=== PATIENT | female | born 1950 | race Hispanic/Latino ===

== ENCOUNTER 2019-08-28 19:33 | Inpatient (IN) | payer MEDICARE ==
[~2019-08-28] VITALS: Ht 152.4 cm; Wt 79.5 kg
[2019-08-28 20:05] LABS: BASOPHILS % (AUTO) 0.7 % (0.0-5.0); EOSINOPHILS % (AUTO) 2.6 % (0.0-8.0); HEMATOCRIT 32.7 % (36-48); LYMPHOCYTES % (AUTO) 16.6 % (21.0-51.0); MEAN CORPUSCULAR HEMOGLOBIN 31.6 pg (27.0-33.0); MEAN CORPUSCULAR HGB CONC 34.4 g/dL (32.0-36.0); MEAN CORPUSCULAR VOLUME 91.7 fL (79-99); MONOCYTES % (AUTO) 9.4 % (3.0-13.0); NEUTROPHILS % (AUTO) 70.7 % (40.0-77.0); PLATELET COUNT (AUTO) 157 K/uL (130-400); RED BLOOD CELL COUNT(AUTO) 3.56 MIL/uL (4.00-5.50); RED CELL DISTRIBUTION WIDTH 14.9 % (11.0-15.5); WHITE BLOOD COUNT (AUTO) 8.4 K/uL (4.8-10.8)
[2019-08-28 20:17] LABS: INR 1.01 (0.85-1.15); PARTIAL THROMBOPLASTIN TIME 26.1 SEC (26.3-35.5); PROTHROMBIN TIME 10.6 SEC (9.6-11.6)
[2019-08-28 20:19] LABS: ALBUMIN 3.8 g/dL (3.5-5.0); BILIRUBIN,TOTAL 0.5 mg/dL (0.2-1.0); CREATININE 2.1 mg/dL (0.5-1.5); POTASSIUM 4.2 mmol/L (3.5-5.1); TOTAL PROTEIN, SERUM 8.2 g/dL (6.0-8.3)
[2019-08-28 22:50] VITALS: BP 111/70
[2019-08-28] MEDS: DEXTROSE 5 % AND 0.9 % NACL 1,000 ML IV SCH (23:37)
[2019-08-29] VITALS (11 sets, daily range): BP systolic 72–103; BP diastolic 36–72
[2019-08-29] MEDS ORDERED: PROM25TA7 PEG (07:02)
[2019-08-29] MEDS ORDERED: ASPI-555 PEG (07:02)
[2019-08-29] MEDS ORDERED: AMLO10TA7 PEG (07:02)
[2019-08-29] MEDS ORDERED: BENA1TAB17 PEG (07:02)
[2019-08-29] MEDS ORDERED: LACT10SO62 PEG (07:02)
[2019-08-29] MEDS ORDERED: FURO20TA4 PEG (07:02)
[2019-08-29] MEDS ORDERED: BISCOLAX PEG (07:33)
[2019-08-29] MEDS ORDERED: ACET-3194 PEG (07:33)
[2019-08-29] MEDS ORDERED: PHEN1SUP43 RC (07:33)
[2019-08-29] MEDS ORDERED: ALBU0.63 IH (07:33)
[2019-08-29] MEDS ORDERED: MORP20SY PO (07:33)
[2019-08-29] MEDS ORDERED: DEXT1DRO8 OU (07:33)
[2019-08-29] MEDS ORDERED: ACET650S14 RC (07:33)
[2019-08-29] MEDS ORDERED: [UNRECOGNIZED DRUG - CODE] PEG (07:33)
[2019-08-29] MEDS ORDERED: MULT-685 PEG (07:33)
[2019-08-29] MEDS ORDERED: IOHEXOL-350 50ML VIAL IV ONE (14:48)
[2019-08-29] MEDS ORDERED: LIDOCAINE HCL 2% 20ML ONE (14:48)
--- NOTE | 2019-08-29 14:51 | NUR ---
Pt off the floor for PEG tube reinsertion at this time, Nursing will continue to monitor.
--- NOTE | 2019-08-29 15:27 | NUR ---
[facility] CM met with pt unable to answer questions appropriately, called [facility] on facesheet. Spoke to Shae Guillaume discussed dc plan. 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 DC plan back to [facility] once peg replaced. DEMETRIUS signed. CM to cont to follow up. Addendum: 08/29/19 at 1528 by COY WINSLOW LVN CM Amended: Links added.
--- NOTE | 2019-08-29 15:28 | NUR ---
CM Note: [facility] reacceptance CM spoke to Jaimie Patel, received clinicals and PASRR. Pt has reacceptance. EMS arranged and faxed for today, primary nurse to call [facility] once pt ready to DC. Primary nurse aware. CM to cont to follow up.
--- NOTE | 2019-08-29 15:48 | NUR ---
RD NOTIFICATION DX: PEG TUBE REPLACEMENT. HX: STROKE, PARALYSIS, HTN, SOB. DIET: NPO. PENDING CONSULTATION/ PROCEDURE AT THIS TIME. LBM: 08/28, NOTED. SKIN INTACT, NO EDEMA. PT COMES FROM [facility] PER FAMILY. PEG FORMULA USED AT THAT FACILITY IS OSMOLITE 1.5 AT 50MLS/HR PER FAMILY. RD RECOMMENDS CONTINUE NPO. ENCOURAGE BOWEL REST DUE TO ELEVATED LIPASE. RD RECOMMENDS ADVANCE DIET TOLERATED WHEN MEDICALLY FEASIBLE. PLEASE NOTIFY RD IF ANY CHANGES OCCUR IN PT STATUS. RD PENDING RESULTS FROM MD IN ORDER TO PLACE RD RECOMMENDATIONS. WILL CONTINUE TO FOLLOW UP. PHILOMENA ESCOBAR MS, RDN Addendum: 08/29/19 at [address] R[address]UEZ [address] RD Amended: Links added.
--- NOTE | 2019-08-29 16:55 | NUR ---
Dr. Kapoor pagesuki, Pending call back to notify MD about temporary g-tube replacement as per Interventional Radiologist, and also low BP with systolic in the 80's. Pending call back.
[2019-08-29] MEDS: DEXTROSE 5 % AND 0.9 % NACL 1,000 ML IV SCH (23:11)
[2019-08-30] VITALS (26 sets, daily range): BP systolic 91–139; BP diastolic 27–95
[2019-08-30] MEDS: DEXTROSE 5 % AND 0.9 % NACL 1,000 ML IV SCH ×2 (05:03→20:27)
--- NOTE | 2019-08-30 10:07 | NUR ---
CM Note: [facility] reacceptance CM spoke to Jaimie w/Ken, pt has reacceptance, aware unable to replace peg yesterday, scheduled for placement today w/Dr Lima. EMS arranged and faxed for today, primary nurse to call [facility] once pt ready to DC. Primary nurse aware. CM to cont to follow up.
--- NOTE | 2019-08-30 12:52 | NUR ---
PEG TUBE PLACEMENT Pt off the floor for peg tube placement at this time, Nursing will continue to follow up.
[2019-08-30] MEDS ORDERED: PROPOFOL 10 MG/ML 20ML VIAL IV ONE (13:37)
[2019-08-30] MEDS ORDERED: SUCCINYLCHOLINE CHLORIDE 20 MG/ML 10 ML VIAL ONE (13:38)
[2019-08-30] MEDS ORDERED: GLYCOPYRROLATE 0.2 MG/ML 5 ML VIAL ONE (13:39)
[2019-08-30] MEDS ORDERED: SUCCINYLCHOLINE 200MG/10ML SYR ONE (13:39)
[2019-08-30] MEDS ORDERED: ATROPINE SULFATE 0.1 MG/ML 10 ML SYG IVP ONE (13:39)
--- NOTE | 2019-08-30 15:34 | NUR ---
RD NOTIFICATION/ FOLLOW UP PT PREVIOUSLY ON OSMOLITE 1.5 AT [facility] ACCORDING TO FAMILY. S/P PEG REPLACEMENT. RD NOTIFIED FOR TF RECOMMENDATIONS. RD RECOMMENDS START JEVITY 1.5 VIA PEG AT 25MLS FOR FIRST 5 HOURS. INCREASE BY 5MLS EVER 5 HOURS TOLERATED UNTIL GOAL RATE ACHIEVED. GOAL RATE IS 40MLS/HR. FORMULA PROVIDES 1440KCAL/D, 61 GM PROTEIN, 730ML. FLUSH WITH 140MLS Q6. TOTAL WATER = 1490MLS/D. RN NOTIFIED. RECS LEFT IN PT CHART. WILL CONTINUE TO MONITOR LABS, TOLERANCE, AND RESIDUALS PHILOMENA ESCOBAR MS, RDN Addendum: 08/30/19 at [address] RD Amended: Links added.
--- NOTE | 2019-08-30 16:28 | NUR ---
NOTIFIED Dr. Kapoor notified about successful peg tube placement, no d/c order yet.
[2019-08-30] MEDS ORDERED: ALBUTEROL SULFATE 0.042% 1.25 MG/3 ML INH IH PRN (19:00)
[2019-08-30] MEDS ORDERED: PROMETHAZINE HCL 25 MG TABLET PO PRN (19:00)
[2019-08-30] MEDS ORDERED: ARTIFICAL TEARS SOL 15 ML OU PRN (19:00)
[2019-08-30] MEDS ORDERED: ACETAMINOPHEN 650 MG SUPPOSITORY RC PRN ×2 (19:00)
[2019-08-30] MEDS ORDERED: NON-FORMULARY MEDICATION 1 EACH (Lactulose 10 GM) JT PRN (19:00)
[2019-08-30] MEDS ORDERED: MORPHINE SULFATE 20MG/ML ORAL 0.25 ML PEG PRN (19:00)
[2019-08-30] MEDS ORDERED: LACTULOSE 20 GM/30 ML UDCUP PEG PRN (20:45)
--- NOTE | 2019-08-30 20:45 | NUR ---
Patient: Patient lying in bed when received. On IV fluid of D5NS at 65 ml/hr. Peg tube in place left upper quadrant abdomen polish 20 Dressing intact; on continuos Feeding Jevity 1.5 at 25 cc/hour. Patient upper and lower extremities were contracted. SCD's and TEds on
[2019-08-30] MEDS: FUROSEMIDE 20 MG TABLET PEG SCH (22:21)
--- NOTE | 2019-08-30 23:00 | NUR ---
Feeding: Peg tube feeding rate increase to 30 ml/hour. patient tolerated well. At 0001 Peg tube flush with 140 ml of water.
[2019-08-31] VITALS (7 sets, daily range): BP systolic 98–142; BP diastolic 58–90
--- NOTE | 2019-08-31 04:00 | NUR ---
Feeding rate increase to 35 ml/hour. at 0435 Patient vomited moderate amount of vomitus water and the feeding Jevity. Peg tube stop for and hour. Phenergan 25 mg tablet powdered given PRN for vomiting via Peg tube. Lactulose 10 mg given. No BM noted. at 0645 connected Peg tube rate lowered back to 30 ml/hour. patient tolerated well.
[2019-08-31] MEDS: DEXTROSE 5 % AND 0.9 % NACL 1,000 ML IV SCH ×2 (05:28→21:42)
[2019-08-31] MEDS: BENAZEPRIL HCTZ PEG SCH (08:55)
[2019-08-31] MEDS ORDERED: SENNOSIDES PEG PRN (09:00)
[2019-08-31] MEDS ORDERED: DOCUSATE SODIUM PEG PRN (09:00)
[2019-08-31] MEDS ORDERED: Preparation H Suppository PR PRN (09:00)
[2019-08-31] MEDS: AMLODIPINE BESYLATE 5 MG TAB PO SCH (09:39)
[2019-08-31] MEDS: FUROSEMIDE 20 MG TABLET PEG SCH ×2 (09:40→21:42)
[2019-08-31] MEDS: MULTIVITAMIN TABLET PEG SCH (09:40)
[2019-08-31] MEDS: ASPIRIN 81 MG EC TAB PEG SCH (09:40)
--- NOTE | 2019-08-31 11:48 | NUR ---
Nutrition follow-up: Pt. on PEG TF with Jevity 1.5@30ml/hr with 140ml free water flushes every 6 hrs. Labs reviewed(Alb 3.8, Lipase 692, BUN 83, Creat 2.1, GFR 25). LBM: 08/28/19. SR-14, elastic. Pt. with 2+ edema to BUE. Recommendations: 1) Rec. increase TF rate of Jevity by 5ml every 5 hrs. to goal rate of 40ml/hr. 2) Continue to monitor pt's nutritional status and TF tolerance. 3) Consult RD as nutrition concerns arise. Addendum: 08/31/19 at [address] Amended: Links added.
--- NOTE | 2019-09-01 00:05 | NUR ---
Checked peg tube with residual, flushed 140ml water. Increased rate to 45ml/hr. Addendum: 09/01/19 at 0048 by JO ANN NDIAYE RN Amended: Links added.
[2019-09-01 03:48] VITALS: BP 113/52
--- NOTE | 2019-09-01 05:00 | NUR ---
increased feeding tube rate to 50ml/hr.
--- NOTE | 2019-09-01 06:00 | NUR ---
tube feeding stopped. checked for residual. flushed with 240ml water. Addendum: 09/01/19 at 0620 by JO ANN NDIAYE RN Amended: Links added.
[2019-09-01 08:00] VITALS: BP 137/71
[2019-09-01] MEDS: BENAZEPRIL HCTZ PEG SCH (09:00)
[2019-09-01] MEDS: ASPIRIN 81 MG EC TAB PEG SCH ×2 (09:11→09:13)
[2019-09-01] MEDS: MULTIVITAMIN TABLET PEG SCH (09:11)
[2019-09-01] MEDS: FUROSEMIDE 20 MG TABLET PEG SCH (09:12)
[2019-09-01] MEDS: AMLODIPINE BESYLATE 5 MG TAB PO SCH (09:12)
--- NOTE | 2019-09-01 10:10 | NUR ---
PEG FEEDING OF GLUCERNA AT 50 CC HR STARTED , CHECK FOR RESIDUALS NONE NOTED. PEG DRSG CHANGED . HOB UP /ASPIRATION , REVIEW. CALL LIGHT IN REACH FOR SISTERS AT THE BEDSIDE,
--- NOTE | 2019-09-01 10:45 | NUR ---
CALL TO MAHSA Arrieta T/C PLACED TO MAHSA Arrieta TO CLARIFY ORDER FOR TUBE FEEDING, STATES TUBE FEEDINGS ARE FROM 10:00 AM TO 0600 THE NEXT DAY FOR A TOTAL OF 20 HOURS/PER DAY.
--- NOTE | 2019-09-01 11:58 | NUR ---
REPORT GIVEN TO [facility] LOPEZ NURSE JASS BUCKNER REPORT Addendum: 09/01/19 at 1203 by HELEN GONZALEZ RN RN Amended: Links added.
[2019-09-01 12:00] VITALS: BP 120/60
--- NOTE | 2019-09-01 12:50 | NUR ---
EMS STAFF HERE, TO TAKE PT TO [facility] . AND FAMILY AT THE BEDSIDE, SL TO HER RT HAND ,DC ,WITH NO HEMATOMA OR REDNESS TO SITE SM PRESSURE DRSG IN PLACE, ,
== END 2019-09-01 13:10 | DRG 394 ==
LOC: EDH 19:33 → EDHIP 21:54 → OBSVTOIN 21:54 → 3DH 23:05
PROVIDERS: ADMIT Internal Medicine; ATTEND Internal Medicine
PROC: 0DP68UZ Removal of Feeding Device from Stomach, Via Natural or Artificial Opening Endoscopic (ICD-10-PCS; principal; 2019-08-30)
PROC: 0DH63UZ Insertion of Feeding Device into Stomach, Percutaneous Approach (ICD-10-PCS; 2019-08-30)
DX: K94.23 Gastrostomy malfunction (principal); N17.9 Acute kidney failure, unspecified; E46 Unspecified protein-calorie malnutrition; E86.0 Dehydration; R13.12 Dysphagia, oropharyngeal phase; F02.80 Dementia in other diseases classified elsewhere, unspecified severity, without behavioral disturbance, psychotic disturbance, mood disturbance, and anxiety; E11.9 Type 2 diabetes mellitus without complications; K27.9 Peptic ulcer, site unspecified, unspecified as acute or chronic, without hemorrhage or perforation; K29.70 Gastritis, unspecified, without bleeding; F01.50 Vascular dementia, unspecified severity, without behavioral disturbance, psychotic disturbance, mood disturbance, and anxiety; K21.0 Gastro-esophageal reflux disease with esophagitis; K29.00 Acute gastritis without bleeding; D50.9 Iron deficiency anemia, unspecified; I25.10 Atherosclerotic heart disease of native coronary artery without angina pectoris; E78.00 Pure hypercholesterolemia, unspecified; I10 Essential (primary) hypertension; Z66 Do not resuscitate; Y83.8 Other surgical procedures as the cause of abnormal reaction of the patient, or of later complication, without mention of misadventure at the time of the procedure; Y92.89 Other specified places as the place of occurrence of the external cause; Z68.34 Body mass index [BMI] 34.0-34.9, adult; I69.311 Memory deficit following cerebral infarction; Z74.01 Bed confinement status; Z71.89 Other specified counseling
CPT/HCPCS: 36415; 43246; 49440; 71045; 80053; 82150; 82948; 83690; 85025; 85610; 85730; 93005; 94664; A4606; C1729; G0378; J0330; J0461; J1644; J2704; J3490; J7042; Q9967